=== PATIENT | female | born 1995 | race Hispanic/Latino ===

== ENCOUNTER 2018-01-07 22:25 | Emergency (ER) | payer MEDICAID ==
[2018-01-07] MEDS ORDERED: DEXAMETHASONE SOD PHOSPHATE 10MG/ML 1ML VIAL ONE (23:30)
== END 2018-01-07 23:53 | disposition home or self-care (01) ==
LOC: EDH 22:25
DX: J02.9 Acute pharyngitis, unspecified (principal); H91.3 Deaf nonspeaking, not elsewhere classified
CPT/HCPCS: 96372; 99283; J1100

== ENCOUNTER 2018-09-08 19:58 | Emergency (ER) | payer MEDICAID ==
[2018-09-08 20:59] LABS: APPEARANCE,URINE Clear (CLEAR); BILIRUBIN,URINE Negative (NEGATIVE); COLOR,URINE Yellow (YELLOW); GLUCOSE, URINE (UA) Negative (NEGATIVE); KETONES,URINE Negative (NEGATIVE); LEUKOCYTE ESTERASE ,URINE Small (NEGATIVE); NITRATE,URINE Negative (NEGATIVE); OCCULT BLOOD,URINE Negative (NEGATIVE); PROTEIN,URINE Negative (NEGATIVE)
[2018-09-08 21:14] LABS: HCG,QUAL RESULT NEGATIVE (NEGATIVE)
[2018-09-08 21:16] LABS: RAPID GROUP A STREP NEGATIVE (NEGATIVE)
[2018-09-08 21:28] LABS: BACTERIA,URINE Moderate /HPF (None Seen); MUCUS,URINE Many LPF (None Seen); RBC,URINE None Seen /HPF (0-1); WBC,URINE 0-1 /HPF (0-1)
== END 2018-09-08 21:43 | disposition home or self-care (01) ==
LOC: EDH 19:58
DX: J02.8 Acute pharyngitis due to other specified organisms (principal); B97.89 Other viral agents as the cause of diseases classified elsewhere; R11.0 Nausea
CPT/HCPCS: 81001; 81025; 87804; 87880

== ENCOUNTER 2019-02-10 09:23 | Emergency (ER) | payer MEDICAID ==
[2019-02-10] MEDS ORDERED: ONDANSETRON HCL 4 MG/2 ML VIAL ONE (09:59)
[2019-02-10] MEDS ORDERED: MORPHINE SULFATE 4 MG/1ML SYG ONE (10:00)
[2019-02-10 10:18] LABS: BASOPHILS % (AUTO) 0.4 % (0.0-5.0); EOSINOPHILS % (AUTO) 1.2 % (0.0-8.0); HEMATOCRIT 43.2 % (36-48); LYMPHOCYTES % (AUTO) 16.5 % (21.0-51.0); MEAN CORPUSCULAR HEMOGLOBIN 30.7 pg (27.0-33.0); MEAN CORPUSCULAR HGB CONC 33.9 g/dL (32.0-36.0); MEAN CORPUSCULAR VOLUME 90.7 fL (79-99); MONOCYTES % (AUTO) 4.9 % (3.0-13.0); PLATELET COUNT (AUTO) 352 K/uL (130-400); RED BLOOD CELL COUNT(AUTO) 4.76 MIL/uL (4.00-5.50); WHITE BLOOD COUNT (AUTO) 12.2 K/uL (4.8-10.8)
[2019-02-10 10:30] LABS: APPEARANCE,URINE Clear (CLEAR); BILIRUBIN,URINE Negative (NEGATIVE); COLOR,URINE Dark Yellow (YELLOW); GLUCOSE, URINE (UA) Negative (NEGATIVE); KETONES,URINE Negative (NEGATIVE); LEUKOCYTE ESTERASE ,URINE Small (NEGATIVE); NITRATE,URINE Negative (NEGATIVE); OCCULT BLOOD,URINE Negative (NEGATIVE); PH,URINE 5.5 (5.0-8.0); PROTEIN,URINE Negative (NEGATIVE)
[2019-02-10 10:38] LABS: CREATININE 0.7 mg/dL (0.5-1.5); HCG,QUAL RESULT NEGATIVE (NEGATIVE)
[2019-02-10 10:42] LABS: ALBUMIN 3.8 g/dL (3.5-5.0); TOTAL PROTEIN, SERUM 7.9 g/dL (6.0-8.3)
[2019-02-10 11:00] LABS: BACTERIA,URINE Rare /HPF (None Seen); CALCIUM OXALATE CRYSTALS,UR Few /LPF (None Seen); MUCUS,URINE Moderate LPF (None Seen); RBC,URINE 0-1 /HPF (0-1); SQUAMOUS EPITHELIAL CELL,UR Few /HPF (0-2)
== END 2019-02-10 11:57 | disposition home or self-care (01) ==
LOC: EDH 09:23
DX: N39.0 Urinary tract infection, site not specified (principal); N83.202 Unspecified ovarian cyst, left side; H91.90 Unspecified hearing loss, unspecified ear
CPT/HCPCS: 36415; 76856; 80053; 81001; 81025; 83690; 85025; 96374; 96375; 99285; J2270; J2405

== ENCOUNTER 2019-08-19 16:59 | Emergency (ER) | payer MEDICAID ==
[2019-08-19 17:26] LABS: APPEARANCE,URINE Cloudy (CLEAR); BILIRUBIN,URINE Negative (NEGATIVE); COLOR,URINE Dark Yellow (YELLOW); GLUCOSE, URINE (UA) Negative (NEGATIVE); KETONES,URINE Negative (NEGATIVE); LEUKOCYTE ESTERASE ,URINE Moderate (NEGATIVE); NITRATE,URINE Negative (NEGATIVE); OCCULT BLOOD,URINE Negative (NEGATIVE); PROTEIN,URINE Negative (NEGATIVE)
[2019-08-19 17:28] LABS: HCG,QUAL RESULT NEGATIVE (NEGATIVE)
[2019-08-19 17:29] LABS: RAPID GROUP A STREP NEGATIVE (NEGATIVE)
[2019-08-19 17:35] LABS: BACTERIA,URINE Few /HPF (None Seen)
[2019-08-19 17:36] LABS: CALCIUM OXALATE CRYSTALS,UR Few /LPF (None Seen); MUCUS,URINE Moderate LPF (None Seen)
== END 2019-08-19 17:49 | disposition home or self-care (01) ==
LOC: EDH 16:59
DX: N30.00 Acute cystitis without hematuria (principal); J06.9 Acute upper respiratory infection, unspecified; H91.3 Deaf nonspeaking, not elsewhere classified
CPT/HCPCS: 81001; 81025; 87804; 87880

== ENCOUNTER 2020-03-13 17:03 | Emergency (ER) | payer MEDICAID ==
[2020-03-13] MEDS ORDERED: LIDOCAINE HCL 1% 20 ML VIAL ONE (17:45)
[2020-03-13] MEDS ORDERED: TETANUS/DIPHTHERIA TOXOID [ADULT] 0.5 ML VIAL IM ONE (17:50)
== END 2020-03-13 18:49 | disposition home or self-care (01) ==
LOC: EDH 17:03
DX: S81.811A Laceration without foreign body, right lower leg, initial encounter (principal); X58.XXXA Exposure to other specified factors, initial encounter; Y93.89 Activity, other specified; Y92.098 Other place in other non-institutional residence as the place of occurrence of the external cause; Y99.8 Other external cause status
CPT/HCPCS: 12002; 73590; 81025; 90471; 90714

== ENCOUNTER 2020-05-08 03:54 | Emergency (ER) | payer MEDICAID ==
[2020-05-08] MEDS ORDERED: LIDOCAINE HCL 1% 20 ML VIAL ONE (04:14)
[2020-05-08] MEDS ORDERED: LIDOCAINE HCL MPF 1% 5ML VIAL ONE (04:15)
[2020-05-08] MEDS ORDERED: TETANUS/DIPHTHERIA TOXOID [ADULT] 0.5 ML VIAL IM ONE (04:51)
== END 2020-05-08 05:06 | disposition home or self-care (01) ==
LOC: EDH 03:54
DX: S01.511A Laceration without foreign body of lip, initial encounter (principal); W54.0XXA Bitten by dog, initial encounter; Y93.89 Activity, other specified; Y92.89 Other specified places as the place of occurrence of the external cause; Y99.8 Other external cause status
CPT/HCPCS: 40650; 90471; 90714; J3490

== ENCOUNTER 2020-05-13 23:07 | Emergency (ER) | payer MEDICAID | END 2020-05-13 23:49 | disposition home or self-care (01) | LOC: EDH 23:07 | DX: S01.511D Laceration without foreign body of lip, subsequent encounter (principal); X58.XXXD Exposure to other specified factors, subsequent encounter | CPT/HCPCS: 99281 ==

== ENCOUNTER 2022-04-15 19:12 | Emergency (ER) | payer MEDICAID ==
[~2022-04-15] VITALS: Ht 152.4 cm; Wt 89.8 kg
[2022-04-15] MEDS ORDERED: ACETAMINOPHEN 500 MG TABLET PO ONE (19:30)
[2022-04-15] MEDS ORDERED: GUAIFENESIN-DM 200/20 MG 10 ML PO ONE (19:30)
[2022-04-15 19:55] LABS: BASOPHILS % (AUTO) 0.3 % (0.0-5.0); EOSINOPHILS % (AUTO) 1.9 % (0.0-8.0); HEMATOCRIT 42.2 % (36-48); LYMPHOCYTES % (AUTO) 28.9 % (21.0-51.0); MEAN CORPUSCULAR HEMOGLOBIN 30.5 pg (27.0-33.0); MEAN CORPUSCULAR HGB CONC 32.9 g/dL (32.0-36.0); MEAN CORPUSCULAR VOLUME 92.5 fL (79-99); MONOCYTES % (AUTO) 5.8 % (3.0-13.0); NEUTROPHILS % (AUTO) 62.8 % (40.0-77.0); PLATELET COUNT (AUTO) 361 K/uL (130-400); RED BLOOD CELL COUNT(AUTO) 4.56 MIL/uL (4.00-5.50); RED CELL DISTRIBUTION WIDTH 12.7 % (11.0-15.5); WHITE BLOOD COUNT (AUTO) 11.5 K/uL (4.8-10.8)
[2022-04-15 19:57] LABS: APPEARANCE,URINE CLEAR (CLEAR); BILIRUBIN,URINE NEGATIVE (NEGATIVE); COLOR,URINE YELLOW (YELLOW); GLUCOSE, URINE (UA) NEGATIVE (NEGATIVE); KETONES,URINE NEGATIVE (NEGATIVE); LEUKOCYTE ESTERASE ,URINE NEGATIVE (NEGATIVE); NITRATE,URINE NEGATIVE (NEGATIVE); OCCULT BLOOD,URINE NEGATIVE (NEGATIVE); PROTEIN,URINE NEGATIVE (NEGATIVE); UROBILINOGEN,URINE 0.2 mg/dL (0.2-1.0)
[2022-04-15 20:02] LABS: HCG,QUAL RESULT NEGATIVE (NEGATIVE)
[2022-04-15 20:04] LABS: CREATININE 0.7 mg/dL (0.5-1.5); POTASSIUM 3.8 mmol/L (3.5-5.1)
[2022-04-15 20:13] LABS: ALBUMIN 3.6 g/dL (3.5-5.0); TOTAL PROTEIN, SERUM 7.3 g/dL (6.0-8.3)
[2022-04-15 21:14] VITALS: BP 131/88
[2022-04-16] MEDS ORDERED: D-ME1POW16 PO (12:25)
== END 2022-04-15 21:24 | disposition home or self-care (01) ==
LOC: EDH 19:12
DX: J06.9 Acute upper respiratory infection, unspecified (principal); Z20.822 Contact with and (suspected) exposure to COVID-19; H91.3 Deaf nonspeaking, not elsewhere classified
CPT/HCPCS: 99284; 71045; 87635; 80053; 85025; 87880; 87804 ×2; 83605; 81003; 81025; 36415; C9803

== ENCOUNTER 2022-06-04 18:10 | Emergency (ER) | payer MEDICAID ==
[~2022-06-04] VITALS: Ht 157.5 cm; Wt 81.6 kg
[~2022-06-04 18:10] MED LIST: D-ME1POW16 PO
[2022-06-04 18:41] LABS: APPEARANCE,URINE SL CLOUDY (CLEAR); BILIRUBIN,URINE NEGATIVE (NEGATIVE); COLOR,URINE YELLOW (YELLOW); GLUCOSE, URINE (UA) NEGATIVE (NEGATIVE); KETONES,URINE NEGATIVE (NEGATIVE); LEUKOCYTE ESTERASE ,URINE MODERATE (NEGATIVE); NITRATE,URINE NEGATIVE (NEGATIVE); OCCULT BLOOD,URINE NEGATIVE (NEGATIVE); PH,URINE 5.5 (5.0-8.0); PROTEIN,URINE NEGATIVE (NEGATIVE); UROBILINOGEN,URINE 0.2 mg/dL (0.2-1.0)
[2022-06-04 18:53] LABS: AMPHET/METH SCREEN,URINE NEGATIVE (NEGATIVE); BARBITURATE SCREEN, URINE NEGATIVE (NEGATIVE); BENZODIAZEPINES SCREEN,URINE NEGATIVE (NEGATIVE); CANNABINOID SCREEN,URINE POSITIVE (NEGATIVE); COCAINE SCREEN,URINE NEGATIVE (NEGATIVE); PHENCYCLIDINE SCREEN,URINE NEGATIVE (NEGATIVE)
[2022-06-04 19:05] LABS: AMORPHOUS SEDIMENT,UR Rare /LPF (None Seen); BACTERIA,URINE Few /HPF (None Seen); MUCUS,URINE Few LPF (None Seen); RBC,URINE 0-1 /HPF (0-1); SQUAMOUS EPITHELIAL CELL,UR Few /HPF (0-2)
[2022-06-04 19:13] LABS: BASOPHILS % (AUTO) 0.3 % (0.0-5.0); EOSINOPHILS % (AUTO) 2.4 % (0.0-8.0); HEMATOCRIT 39.1 % (36-48); LYMPHOCYTES % (AUTO) 19.2 % (21.0-51.0); MEAN CORPUSCULAR HEMOGLOBIN 30.9 pg (27.0-33.0); MEAN CORPUSCULAR HGB CONC 33.2 g/dL (32.0-36.0); MEAN CORPUSCULAR VOLUME 92.9 fL (79-99); MONOCYTES % (AUTO) 5.9 % (3.0-13.0); NEUTROPHILS % (AUTO) 71.9 % (40.0-77.0); PLATELET COUNT (AUTO) 320 K/uL (130-400); RED BLOOD CELL COUNT(AUTO) 4.21 MIL/uL (4.00-5.50); RED CELL DISTRIBUTION WIDTH 13.2 % (11.0-15.5); WHITE BLOOD COUNT (AUTO) 10.9 K/uL (4.8-10.8)
[2022-06-04 19:14] LABS: CREATININE 0.7 mg/dL (0.5-1.5); POTASSIUM 4.2 mmol/L (3.5-5.1)
[2022-06-04 19:23] LABS: ALBUMIN 3.5 g/dL (3.5-5.0); CRP QUANTITATIVE 10.2 mg/L (0.00-9.0)
[2022-06-04] MEDS ORDERED: CEFTRIAXONE 1G VIAL IM ONE (19:30)
[2022-06-04] MEDS ORDERED: LIDOCAINE HCL 1% 20 ML VIAL ONE (19:35)
[2022-06-04] MEDS ORDERED: CEPH500B PO (21:04)
[2022-06-04 21:07] VITALS: BP 121/54
== END 2022-06-04 21:14 | disposition home or self-care (01) ==
LOC: EDH 18:10
DX: N39.0 Urinary tract infection, site not specified (principal); F12.10 Cannabis abuse, uncomplicated; E66.9 Obesity, unspecified; Z68.32 Body mass index [BMI] 32.0-32.9, adult
CPT/HCPCS: 99283; 82550; 84484; 80053; 80305; 85025; 87088; 86140; 36415; 96372; 81001; J0696

== ENCOUNTER 2023-03-15 19:48 | Emergency (ER) | payer MEDICAID ==
[~2023-03-15 19:48] MED LIST changes: +CEPH500B PO
[2023-03-15] MEDS ORDERED: PROPOFOL 10 MG/ML 20ML VIAL IV ONE (19:50)
[2023-03-15] MEDS ORDERED: FAMOTIDINE 20MG VIAL IV ONE (20:00)
[2023-03-15] MEDS ORDERED: KETOROLAC 30MG VIAL (30MG/ML) IVP ONE (20:00)
[2023-03-15] MEDS ORDERED: PROPOFOL 10 MG/ML 20ML VIAL IV SCH (20:00)
[2023-03-15] MEDS ORDERED: METOCLOPRAMIDE 10 MG/2 ML VIAL IVP ONE (20:00)
[2023-03-15 20:57] LABS: BASOPHILS % (AUTO) 0.3 % (0.0-5.0); HEMATOCRIT 46.3 % (36-48); LYMPHOCYTES % (AUTO) 18.5 % (21.0-51.0); MEAN CORPUSCULAR HEMOGLOBIN 30.5 pg (27.0-33.0); MEAN CORPUSCULAR HGB CONC 32.4 g/dL (32.0-36.0); MEAN CORPUSCULAR VOLUME 94.3 fL (79-99); MONOCYTES % (AUTO) 5.7 % (3.0-13.0); NEUTROPHILS % (AUTO) 74.1 % (40.0-77.0); PLATELET COUNT (AUTO) 491 K/uL (130-400); RED BLOOD CELL COUNT(AUTO) 4.91 MIL/uL (4.00-5.50); RED CELL DISTRIBUTION WIDTH 13.6 % (11.0-15.5); WHITE BLOOD COUNT (AUTO) 13.7 K/uL (4.8-10.8)
[2023-03-15 21:14] LABS: CREATININE 0.9 mg/dL (0.5-1.5); POTASSIUM 3.8 mmol/L (3.5-5.1)
[2023-03-15 23:51] VITALS: BP 132/74
== END 2023-03-16 00:01 | disposition home or self-care (01) ==
LOC: EDH 19:48
DX: S43.001A Unspecified subluxation of right shoulder joint, initial encounter (principal); S02.2XXA Fracture of nasal bones, initial encounter for closed fracture; E66.9 Obesity, unspecified; W19.XXXA Unspecified fall, initial encounter; Y93.83 Activity, rough housing and horseplay; Y92.89 Other specified places as the place of occurrence of the external cause; Y99.8 Other external cause status
CPT/HCPCS: 99285; 70450; 96374; 96375; 80048; 84702; 85025; 36415; 72170; 73030; 71101; 72125; 70486; J1885; J2765; S0028; J2704; J3490

== ENCOUNTER 2023-04-24 14:38 | Emergency (ER) | payer MEDICAID ==
[~2023-04-24] VITALS: Ht 172.7 cm; Wt 99.8 kg
[2023-04-24 14:40] VITALS: BP 169/66; PULSE 72; RESP 16
[2023-04-24] MEDS ORDERED: TETANUS/DIPHTHERIA TOXOID [ADULT] 0.5 ML VIAL IM ONE (16:30)
== END 2023-04-24 19:15 | disposition home or self-care (01) ==
LOC: EDH 14:38
DX: S81.811A Laceration without foreign body, right lower leg, initial encounter (principal); S80.811A Abrasion, right lower leg, initial encounter; Z79.899 Other long term (current) drug therapy; Z98.890 Other specified postprocedural states; X58.XXXA Exposure to other specified factors, initial encounter; Y93.89 Activity, other specified; Y92.89 Other specified places as the place of occurrence of the external cause; Y99.8 Other external cause status
CPT/HCPCS: 12002; 70360; 90471; 90714

== ENCOUNTER 2024-03-16 09:11 | Emergency (ER) | payer MEDICAID ==
[~2024-03-16] VITALS: Ht 157.5 cm; Wt 78.5 kg
[2024-03-16 10:20] LABS: BASOPHILS # (AUTO) 0.03 K/uL (0.00-0.20); BASOPHILS % (AUTO) 0.2 % (0.0-5.0); EOSINOPHILS # (AUTO) 0.02 K/uL (0.00-0.70); EOSINOPHILS % (AUTO) 0.1 % (0.0-8.0); HEMATOCRIT 43.6 % (36-48); IMMATURE GRANULOCYTE ABSOLUTE 0.06 K/uL (0-1); LYMPHOCYTES # (AUTO) 2.4 K/uL (1.0-4.8); MEAN CORPUSCULAR HEMOGLOBIN 28.7 pg (27.0-33.0); MEAN CORPUSCULAR HGB CONC 33.5 g/dL (32.0-36.0); MEAN CORPUSCULAR VOLUME 85.8 fL (79-99); MONOCYTES # (AUTO) 0.9 K/uL (0.1-1.0); MONOCYTES % (AUTO) 5.8 % (3.0-13.0); NEUTROPHILS # (AUTO) 11.5 K/uL (1.8-7.7); NEUTROPHILS % (AUTO) 77.5 % (40.0-77.0); PLATELET COUNT (AUTO) 458 K/uL (130-400); RED BLOOD CELL COUNT(AUTO) 5.08 MIL/uL (4.00-5.50); RED CELL DISTRIBUTION WIDTH 15.4 % (11.0-15.5); WHITE BLOOD COUNT (AUTO) 14.8 K/uL (4.8-10.8)
[2024-03-16] MEDS: LIDOCAINE HCL 1% 20 ML VIAL INJ SCH (10:29)
[2024-03-16] MEDS: ACETAMINOPHEN 500 MG TABLET PO ONE (10:29)
[2024-03-16 10:31] LABS: CREATININE 0.8 mg/dL (0.5-1.0); POTASSIUM 3.5 mmol/L (3.5-5.1)
[2024-03-16] MEDS: TETANUS/DIPHTHERIA TOXOID [ADULT] 0.5 ML VIAL IM ONE (10:31)
[2024-03-16] MEDS ORDERED: IOHEXOL-350 75 ML VIAL IV ONE (11:31)
[2024-03-16 15:08] VITALS: BP 126/72; PULSE 68; RESP 16; O2SAT 100
== END 2024-03-16 16:44 | disposition short-term general hospital (02) ==
LOC: EDH 09:11
DX: S61.012A Laceration without foreign body of left thumb without damage to nail, initial encounter (principal); S00.83XA Contusion of other part of head, initial encounter; S10.93XA Contusion of unspecified part of neck, initial encounter; S60.222A Contusion of left hand, initial encounter; T74.21XA Adult sexual abuse, confirmed, initial encounter; Y93.89 Activity, other specified; Y92.89 Other specified places as the place of occurrence of the external cause; Y99.8 Other external cause status
CPT/HCPCS: 99285; 70450; 80048; 85025; 81025; 36415; 90714; 73130; 72125; 70498; 90471; 12001; Q9967